=== PATIENT | female | born 1940 | race Two or more races ===

== ENCOUNTER 2018-08-19 19:08 | Inpatient (IN) | payer OTHER, MEDICAID ==
[~2018-08-19] VITALS: Ht 157.5 cm; Wt 74.8 kg
[2018-08-19] MEDS ORDERED: SODIUM CHLORIDE 0.9% 500 ML IV ONE (21:17)
[2018-08-19 21:52] LABS: BASOPHILS % 0.3 % (0.0-2.0); EOSINOPHILS % 0.4 % (0.0-5.0); HEMOGLOBIN. 13.8 g/dL (12.0-16.0); LYMPHOCYTES % 13.1 % (20.0-50.0); MEAN CORPUSCULAR VOLUME 91.4 fL (81.0-99.0); MEAN PLATELET VOLUME 8.7 fl (7.4-10.4); MONOCYTES % 10.5 % (2.0-8.0); NEUTROPHILS % 75.7 % (40.0-76.0); PLATELET 272 x1000/uL (130-400); RED CELL DISTRIBUTION WIDTH 14.5 % (11.6-14.6)
[2018-08-19 21:57] LABS: CHLORIDE 104 mEq/L (98-107)
[2018-08-19 22:05] LABS: CREATINE KINASE 42 IU/L (26-192)
[2018-08-19 22:08] LABS: CREATINE KINASE MB FRACTION < 1.0 ng/mL (0.5-3.6)
[2018-08-19] MEDS ORDERED: LEVOFLOXACIN 750MG PREMIX 150 ML IV ONE (23:15)
[2018-08-20 09:45] VITALS: BP 135/57
[2018-08-20] MEDS ORDERED: MORPHINE SULFATE 4 MG/ML CPJ (NOT FOR IM USE) IV PRN (11:45)
[2018-08-20] MEDS ORDERED: AZITHROMYCIN 500 MG in DEXT 5% WATER 250 ML IV SCH (11:45)
[2018-08-20] MEDS ORDERED: IPRATROPIUM/ALBUTEROL 0.5-3(2.5)MG/3ML NEB INH PRN (11:45)
[2018-08-20] MEDS ORDERED: ONDANSETRON HCL 4MG/2ML INJ IV PRN (11:45)
[2018-08-20] MEDS ORDERED: HYDROCODONE/ACETAMINOPHEN 5/325MG TABLET PO PRN (11:45)
[2018-08-20] MEDS ORDERED: CEFTRIAXONE 1 G PREMIX 50 ML IV SCH (11:45)
[2018-08-20] MEDS ORDERED: ACETAMINOPHEN 325MG TABLET PO PRN (11:45)
[2018-08-20] MEDS ORDERED: CLONIDINE 0.1MG TABLET PO PRN (11:45)
[2018-08-20 12:00] VITALS: BP 139/49
[2018-08-20] MEDS ORDERED: ASPI-1159 MT (12:16)
[2018-08-20] MEDS ORDERED: SIMV10TA2 MT (12:16)
[2018-08-20] MEDS ORDERED: DULO30CA2 MT (12:16)
[2018-08-20] MEDS ORDERED: DONE10TA11 MT (12:16)
[2018-08-20] MEDS ORDERED: FAMO-134 PO (12:16)
[2018-08-20] MEDS ORDERED: AMLO5TAB4 MT (12:16)
[2018-08-20] MEDS ORDERED: SENN-22 PO (12:16)
[2018-08-20] MEDS ORDERED: ASPRIN (12:16)
[2018-08-20] MEDS ORDERED: CHOL100044 MT (12:16)
[2018-08-20] MEDS ORDERED: MULT-1146 MT (12:16)
[2018-08-20] MEDS ORDERED: DOCU-138 PO (12:16)
[2018-08-20 12:38] LABS: BASOPHILS % 0.5 % (0.0-2.0); EOSINOPHILS % 0.4 % (0.0-5.0); HEMATOCRIT. 38.2 % (36.0-48.0); HEMOGLOBIN. 12.6 g/dL (12.0-16.0); LYMPHOCYTES % 12.1 % (20.0-50.0); MEAN CORPUSCULAR HEMOGLOBIN 29.8 pg (28.0-32.0); MEAN CORPUSCULAR VOLUME 90.8 fL (81.0-99.0); MEAN PLATELET VOLUME 8.1 fl (7.4-10.4); MONOCYTES % 9.9 % (2.0-8.0); NEUTROPHILS % 77.1 % (40.0-76.0); PLATELET 242 x1000/uL (130-400); RED BLOOD CELL COUNT 4.21 mill/uL (4.2-5.4); RED CELL DISTRIBUTION WIDTH 14.1 % (11.6-14.6)
[2018-08-20 12:54] LABS: CHLORIDE 107 mEq/L (98-107)
[2018-08-20] MEDS: CEFTRIAXONE 1 G PREMIX 50 ML IV SCH (13:46)
[2018-08-20] MEDS: DONEPEZIL HCL 10MG TABLET PO SCH (13:47)
[2018-08-20] MEDS: DULOXETINE HCL 20MG DR CAPSULE PO SCH (13:47)
[2018-08-20] MEDS: AZITHROMYCIN 500 MG in DEXT 5% WATER 250 ML IV SCH (13:47)
[2018-08-20] MEDS: FAMOTIDINE 20MG TABLET PO SCH (13:47)
[2018-08-20] MEDS: AMLODIPINE 5MG TABLET PO SCH (13:59)
[2018-08-20 15:57] LABS: CREATINE KINASE 48 IU/L (26-192)
[2018-08-20 16:00] VITALS: BP 148/49
[2018-08-20 20:01] VITALS: BP 128/53
[2018-08-20] MEDS ORDERED: FAMOTIDINE 20MG TABLET PO SCH (21:00)
[2018-08-20] MEDS: ATORVASTATIN CALCIUM 10MG TABLET PO SCH (23:04)
[2018-08-20 23:10] LABS: CREATINE KINASE 46 IU/L (26-192)
[2018-08-21] VITALS (7 sets, daily range): BP systolic 106–146; BP diastolic 46–80
[2018-08-21 07:08] LABS: BASOPHILS % 0.5 % (0.0-2.0); EOSINOPHILS % 2.2 % (0.0-5.0); HEMATOCRIT. 35.9 % (36.0-48.0); LYMPHOCYTES % 13.2 % (20.0-50.0); MEAN CORPUSCULAR HEMOGLOBIN 30.8 pg (28.0-32.0); MEAN PLATELET VOLUME 8.8 fl (7.4-10.4); MONOCYTES % 10.3 % (2.0-8.0); NEUTROPHILS % 73.8 % (40.0-76.0); PLATELET 255 x1000/uL (130-400)
[2018-08-21 07:45] LABS: CHLORIDE 106 mEq/L (98-107)
[2018-08-21 07:54] LABS: HDL CHOLESTEROL 50 mg/dL (40-59); T4 FREE 1.51 ng/dL (0.76-1.46)
[2018-08-21 07:55] LABS: LDL CHOLESTEROL 78 mg/dL (5-100)
[2018-08-21] MEDS: AZITHROMYCIN 500 MG in DEXT 5% WATER 250 ML IV SCH (08:30)
[2018-08-21] MEDS: DULOXETINE HCL 20MG DR CAPSULE PO SCH (08:31)
[2018-08-21] MEDS: AMLODIPINE 5MG TABLET PO SCH (08:32)
[2018-08-21] MEDS: FAMOTIDINE 20MG TABLET PO SCH (08:33)
[2018-08-21] MEDS: DONEPEZIL HCL 10MG TABLET PO SCH (08:33)
[2018-08-21] MEDS: CEFTRIAXONE 1 G PREMIX 50 ML IV SCH (12:14)
[2018-08-21] MEDS ORDERED: IOHEXOL-350 100 ML BOTTLE ONE (13:12)
[2018-08-21] MEDS: ATORVASTATIN CALCIUM 10MG TABLET PO SCH ×2 (20:28→20:31)
== END 2018-08-21 22:45 | DRG 70 ==
LOC: ER 19:08 → 7WST 23:49 → ENRESERV 08-20 07:16
PROVIDERS: ADMIT Internal Medicine; ATTEND Internal Medicine
DX: G93.41 Metabolic encephalopathy (principal); J18.9 Pneumonia, unspecified organism; G30.9 Alzheimer's disease, unspecified; K29.70 Gastritis, unspecified, without bleeding; I10 Essential (primary) hypertension; F02.80 Dementia in other diseases classified elsewhere, unspecified severity, without behavioral disturbance, psychotic disturbance, mood disturbance, and anxiety; R09.02 Hypoxemia; R29.6 Repeated falls; K21.9 Gastro-esophageal reflux disease without esophagitis; Z86.73 Personal history of transient ischemic attack (TIA), and cerebral infarction without residual deficits; Z88.2 Allergy status to sulfonamides
CPT/HCPCS: 36415; 71045; 71275; 80048; 80061; 82550; 82553; 83605; 83880; 84439; 84443; 84484; 85379; 93005; 96365; 99285; J0456; J0696; J1956; J7040; J7050; J7060; Q9967; A4315

== ENCOUNTER 2018-09-04 20:27 | Inpatient (IN) | payer OTHER ==
[~2018-09-04] VITALS: Ht 162.6 cm; Wt 63.6 kg
[~2018-09-04 20:27] MED LIST: AMLO5TAB4 MT; ASPI-1159 MT; ASPRIN; CHOL100044 MT; DOCU-138 PO; DONE10TA11 MT; DULO30CA2 MT; FAMO-134 PO; MULT-1146 MT; SENN-22 PO; SIMV10TA2 MT
[2018-09-04] MEDS ORDERED: SODIUM CHLORIDE 0.9% 1,000 ML IV ONE (20:46)
[2018-09-04] MEDS ORDERED: ACETAMINOPHEN 650MG SUPP PR STA (20:46)
[2018-09-04] MEDS ORDERED: SODIUM CHLORIDE 0.9% 1000ML BAG (SEPSIS BOLUS) IV ONE (21:00)
[2018-09-04] MEDS ORDERED: VANCOMYCIN 1 G PREMIX 200 ML IV ONE (21:00)
[2018-09-04] MEDS ORDERED: PIPERACILLIN/TAZ 3.375G PREMIX 50 ML IV ONE (21:00)
[2018-09-04 21:11] LABS: BASOPHILS % 0.3 % (0.0-2.0); EOSINOPHILS % 0.3 % (0.0-5.0); HEMATOCRIT. 42.1 % (36.0-48.0); HEMOGLOBIN. 13.6 g/dL (12.0-16.0); LYMPHOCYTES % 11.1 % (20.0-50.0); MEAN CORPUSCULAR HEMOGLOBIN 29.1 pg (28.0-32.0); MEAN CORPUSCULAR VOLUME 90.3 fL (81.0-99.0); MEAN PLATELET VOLUME 8.4 fl (7.4-10.4); MONOCYTES % 11.8 % (2.0-8.0); NEUTROPHILS % 76.5 % (40.0-76.0); PLATELET 431 x1000/uL (130-400); RED BLOOD CELL COUNT 4.66 mill/uL (4.2-5.4); RED CELL DISTRIBUTION WIDTH 13.5 % (11.6-14.6)
[2018-09-04 21:17] LABS: CHLORIDE 103 mEq/L (98-107)
[2018-09-04 21:18] LABS: INR 1.1; PROTHROMBIN TIME 11.1 sec (9.6-11.0)
[2018-09-04] MEDS ORDERED: ACETAMINOPHEN 325MG TABLET PO ONE (21:45)
[2018-09-04 22:09] LABS: CLARITY URINE CLEAR (CLEAR); COLOR URINE DARK YELLOW (YELLOW); KETONES URINE TRACE (NEGATIVE); LEUKOCYTE ESTERASE URINE NEGATIVE (NEGATIVE); NITRITE URINE NEGATIVE (NEGATIVE); OCCULT BLOOD URINE NEGATIVE (NEGATIVE); PROTEIN URINE TRACE (NEGATIVE); SPECIFIC GRAVITY URINE 1.024 (1.005-1.030); UROBILINOGEN URINE 0.2 E.U./dL (0.2-1.0)
[2018-09-04] MEDS ORDERED: LORAZEPAM 2MG/ML CPJ IV ONE (22:30)
[2018-09-04] MEDS ORDERED: ACETAMINOPHEN 650MG SUPP PR ONE (23:00)
[2018-09-04] MEDS ORDERED: METRONIDAZOLE 500 MG PREMIX 100 ML IV ONE (23:30)
[2018-09-05 01:00] VITALS: BP 121/40
[2018-09-05 02:28] VITALS: BP 121/40
[2018-09-05] MEDS ORDERED: ACETAMINOPHEN 650MG/20.3ML UDC PO PRN (03:30)
[2018-09-05] MEDS ORDERED: HYDROCODONE/ACETAMINOPHEN 5/325MG TABLET PO PRN (03:30)
[2018-09-05] MEDS ORDERED: ATOR10TA PO (03:47)
[2018-09-05 04:00] VITALS: BP 130/76
[2018-09-05] MEDS ORDERED: LEVOFLOXACIN 500MG TABLET PO SCH ×2 (04:15→11:00)
[2018-09-05 06:31] LABS: BASOPHILS % 0.3 % (0.0-2.0); HEMOGLOBIN. 11.3 g/dL (12.0-16.0); LYMPHOCYTES % 10.6 % (20.0-50.0); MEAN CORPUSCULAR HEMOGLOBIN 28.8 pg (28.0-32.0); MEAN CORPUSCULAR VOLUME 88.9 fL (81.0-99.0); MEAN PLATELET VOLUME 8.4 fl (7.4-10.4); MONOCYTES % 10.6 % (2.0-8.0); NEUTROPHILS % 77.5 % (40.0-76.0); PLATELET 346 x1000/uL (130-400); RED BLOOD CELL COUNT 3.93 mill/uL (4.2-5.4); RED CELL DISTRIBUTION WIDTH 13.9 % (11.6-14.6)
[2018-09-05] MEDS: METRONIDAZOLE 500MG TABLET PO SCH ×3 (06:34→21:28)
[2018-09-05 07:17] LABS: CHLORIDE 112 mEq/L (98-107)
[2018-09-05 07:29] LABS: LDL CHOLESTEROL 53 mg/dL (5-100)
[2018-09-05 07:31] LABS: T4 FREE 1.46 ng/dL (0.76-1.46)
[2018-09-05 07:33] LABS: HDL CHOLESTEROL 40 mg/dL (40-59)
[2018-09-05 08:00] VITALS: BP_SYST 106; BP_SYST 90; BP_DIAS 42; BP_DIAS 43
[2018-09-05] MEDS: ENOXAPARIN 40MG/0.4ML SYR SUBCUT SCH (08:54)
[2018-09-05 11:44] LABS: BG BASE EXCESS -1.4 mmol/L (-2.0-2.0); BG DEOXYHEMOGLOBIN 8.9 % (0.0-5.0); BG FRACTION INSPIRED OXYGEN 21; BG HCO3 ACT 23.5 mmol/L (22.0-26.0); BG METHEMOGLOBIN 0.2 % (0.0-1.5); BG OXYGEN SATURATION 91.1 % (92.0-98.5); BG OXYHEMOGLOBIN 90.9 % (94.0-97.0); BG PCO2 40.3 mmHg (35.0-45.0); BG PH 7.384 (7.350-7.450); BG PO2 57.7 mmHg (75.0-100.0); BG SAMPLE SITE RIGHT RADIAL; BG TOTAL HEMOGLOBIN 12.2 g/dL (12.0-18.0); BG VENT MODE ROOM AIR
[2018-09-05 12:00] VITALS: BP 106/42
[2018-09-05] MEDS: DEXT 5%/0.45% NACL 1000ML 1,000 ML IV SCH (13:58)
[2018-09-05 20:00] VITALS: BP 108/46
[2018-09-05] MEDS: BUDESONIDE 0.5MG/2ML NEB HHN SCH (20:49)
[2018-09-05] MEDS: IPRATROPIUM/ALBUTEROL 0.5-3(2.5)MG/3ML NEB HHN SCH (20:53)
[2018-09-05] MEDS: NYSTATIN POWDER 15GM TOP SCH (21:28)
[2018-09-06] VITALS: BP 126/49
[2018-09-06] MEDS: IPRATROPIUM/ALBUTEROL 0.5-3(2.5)MG/3ML NEB HHN SCH ×6 (00:20→21:22)
[2018-09-06] MEDS: DEXT 5%/0.45% NACL 1000ML 1,000 ML IV SCH ×2 (03:01→13:23)
[2018-09-06 04:00] VITALS: BP 105/42
[2018-09-06] MEDS ORDERED: LEVOFLOXACIN 250MG PREMIX 50 ML IV SCH (06:00)
[2018-09-06] MEDS: METRONIDAZOLE 500MG TABLET PO SCH ×3 (06:02→21:37)
[2018-09-06 06:27] LABS: BASOPHILS % 0.5 % (0.0-2.0); EOSINOPHILS % 4.1 % (0.0-5.0); HEMATOCRIT. 35.1 % (36.0-48.0); HEMOGLOBIN. 11.4 g/dL (12.0-16.0); LYMPHOCYTES % 19.3 % (20.0-50.0); MEAN CORPUSCULAR HEMOGLOBIN 29.1 pg (28.0-32.0); MEAN CORPUSCULAR VOLUME 89.4 fL (81.0-99.0); MEAN PLATELET VOLUME 8.2 fl (7.4-10.4); MONOCYTES % 8.2 % (2.0-8.0); NEUTROPHILS % 67.9 % (40.0-76.0); PLATELET 322 x1000/uL (130-400); RED BLOOD CELL COUNT 3.92 mill/uL (4.2-5.4); RED CELL DISTRIBUTION WIDTH 13.9 % (11.6-14.6)
[2018-09-06 08:00] VITALS: BP 99/41
[2018-09-06] MEDS: BUDESONIDE 0.5MG/2ML NEB HHN SCH ×2 (08:08→21:22)
[2018-09-06] MEDS: NYSTATIN POWDER 15GM TOP SCH ×2 (08:51→17:00)
[2018-09-06] MEDS: ENOXAPARIN 40MG/0.4ML SYR SUBCUT SCH (08:51)
[2018-09-06] MEDS ORDERED: LEVOFLOXACIN 250MG TABLET PO SCH (11:00)
[2018-09-06 12:00] VITALS: BP 118/50
[2018-09-06] MEDS: VANCOMYCIN HCL 1000 MG/20 ML ORAL PO SCH (19:51)
[2018-09-06 20:00] VITALS: BP 152/59
[2018-09-07] VITALS (8 sets, daily range): BP systolic 106–145; BP diastolic 48–88
[2018-09-07] MEDS: VANCOMYCIN HCL 1000 MG/20 ML ORAL PO SCH ×4 (01:09→17:09)
[2018-09-07] MEDS: IPRATROPIUM/ALBUTEROL 0.5-3(2.5)MG/3ML NEB HHN SCH ×7 (01:30→20:26)
[2018-09-07] MEDS: METRONIDAZOLE 500MG TABLET PO SCH ×3 (06:18→23:00)
[2018-09-07] MEDS: DEXT 5%/0.45% NACL 1000ML 1,000 ML IV SCH ×2 (06:20→12:32)
[2018-09-07 07:26] LABS: BASOPHILS % 0.6 % (0.0-2.0); EOSINOPHILS % 0.9 % (0.0-5.0); HEMATOCRIT. 36.3 % (36.0-48.0); LYMPHOCYTES % 15.8 % (20.0-50.0); MEAN CORPUSCULAR HEMOGLOBIN 29.4 pg (28.0-32.0); MEAN CORPUSCULAR VOLUME 89.1 fL (81.0-99.0); MEAN PLATELET VOLUME 8.7 fl (7.4-10.4); MONOCYTES % 7.3 % (2.0-8.0); NEUTROPHILS % 75.4 % (40.0-76.0); PLATELET 347 x1000/uL (130-400); RED BLOOD CELL COUNT 4.07 mill/uL (4.2-5.4); RED CELL DISTRIBUTION WIDTH 13.4 % (11.6-14.6)
[2018-09-07 07:39] LABS: CHLORIDE 107 mEq/L (98-107)
[2018-09-07] MEDS: BUDESONIDE 0.5MG/2ML NEB HHN SCH ×3 (08:45→20:26)
[2018-09-07] MEDS: NYSTATIN POWDER 15GM TOP SCH ×2 (10:57→17:09)
[2018-09-07] MEDS: ENOXAPARIN 40MG/0.4ML SYR SUBCUT SCH (10:57)
[2018-09-07] MEDS ORDERED: ATROPINE SULFATE 1MG/10ML SYR IV PRN ×2 (14:30→15:45)
[2018-09-07] MEDS ORDERED: POTASSIUM CHLORIDE INJ 40 MEQ in DEXT 5% WATER 250 ML IV NR (16:00)
[2018-09-07] MEDS: AMLODIPINE 2.5MG TABLET PO SCH (21:24)
[2018-09-08] VITALS (12 sets, daily range): BP systolic 117–165; BP diastolic 57–87
[2018-09-08] MEDS: IPRATROPIUM/ALBUTEROL 0.5-3(2.5)MG/3ML NEB HHN SCH ×4 (00:20→20:48)
[2018-09-08 05:51] LABS: CHLORIDE 107 mEq/L (98-107)
[2018-09-08] MEDS: DEXT 5%/0.45% NACL 1000ML 1,000 ML IV SCH ×2 (06:01→17:30)
[2018-09-08 06:28] LABS: BASOPHILS % 0.5 % (0.0-2.0); EOSINOPHILS % 0.1 % (0.0-5.0); HEMATOCRIT. 37.9 % (36.0-48.0); HEMOGLOBIN. 12.8 g/dL (12.0-16.0); LYMPHOCYTES % 18.2 % (20.0-50.0); MEAN CORPUSCULAR HEMOGLOBIN 29.8 pg (28.0-32.0); MEAN CORPUSCULAR VOLUME 88.4 fL (81.0-99.0); MEAN PLATELET VOLUME 8.4 fl (7.4-10.4); MONOCYTES % 7.3 % (2.0-8.0); NEUTROPHILS % 73.9 % (40.0-76.0); PLATELET 339 x1000/uL (130-400); RED BLOOD CELL COUNT 4.29 mill/uL (4.2-5.4); RED CELL DISTRIBUTION WIDTH 13.7 % (11.6-14.6)
[2018-09-08] MEDS: METRONIDAZOLE 500MG TABLET PO SCH ×3 (06:39→21:55)
[2018-09-08] MEDS: VANCOMYCIN HCL 1000 MG/20 ML ORAL PO SCH ×4 (06:40→17:29)
[2018-09-08] MEDS: AMLODIPINE 2.5MG TABLET PO SCH ×2 (09:00→21:55)
[2018-09-08] MEDS: ENOXAPARIN 40MG/0.4ML SYR SUBCUT SCH (09:12)
[2018-09-08] MEDS: NYSTATIN POWDER 15GM TOP SCH ×2 (09:16→17:17)
[2018-09-08] MEDS ORDERED: POTASSIUM CHLORIDE 20MEQ TABLET SR PO NR (11:30)
[2018-09-08] MEDS ORDERED: POTASSIUM CHLORIDE INJ 40 MEQ in DEXT 5% WATER 250 ML IV NR (12:00)
[2018-09-09] VITALS (12 sets, daily range): BP systolic 107–153; BP diastolic 59–87
[2018-09-09] MEDS: IPRATROPIUM/ALBUTEROL 0.5-3(2.5)MG/3ML NEB HHN SCH ×3 (00:27→16:00)
[2018-09-09 05:48] LABS: BASOPHILS % 0.8 % (0.0-2.0); EOSINOPHILS % 2.5 % (0.0-5.0); HEMATOCRIT. 37.5 % (36.0-48.0); HEMOGLOBIN. 12.3 g/dL (12.0-16.0); LYMPHOCYTES % 26.5 % (20.0-50.0); MEAN CORPUSCULAR HEMOGLOBIN 28.9 pg (28.0-32.0); MEAN CORPUSCULAR VOLUME 88.2 fL (81.0-99.0); NEUTROPHILS % 61.2 % (40.0-76.0); PLATELET 363 x1000/uL (130-400); RED BLOOD CELL COUNT 4.26 mill/uL (4.2-5.4); RED CELL DISTRIBUTION WIDTH 13.6 % (11.6-14.6)
[2018-09-09] MEDS: VANCOMYCIN HCL 1000 MG/20 ML ORAL PO SCH ×4 (06:47→17:20)
[2018-09-09] MEDS: METRONIDAZOLE 500MG TABLET PO SCH ×3 (06:47→22:37)
[2018-09-09 08:42] LABS: CHLORIDE 108 mEq/L (98-107)
[2018-09-09 09:03] LABS: CREATINE KINASE 67 IU/L (26-192)
[2018-09-09 09:06] LABS: CREATINE KINASE MB FRACTION 1.1 ng/mL (0.5-3.6)
[2018-09-09] MEDS: ENOXAPARIN 40MG/0.4ML SYR SUBCUT SCH (09:26)
[2018-09-09] MEDS: AMLODIPINE 2.5MG TABLET PO SCH ×2 (09:26→22:36)
[2018-09-09] MEDS: DEXT 5%/0.45% NACL 1000ML 1,000 ML IV SCH ×2 (09:28→22:37)
[2018-09-09] MEDS: NYSTATIN POWDER 15GM TOP SCH ×2 (09:30→17:23)
[2018-09-10] VITALS (11 sets, daily range): BP systolic 110–138; BP diastolic 49–81
[2018-09-10] MEDS: VANCOMYCIN HCL 1000 MG/20 ML ORAL PO SCH ×4 (00:54→18:00)
[2018-09-10] MEDS: IPRATROPIUM/ALBUTEROL 0.5-3(2.5)MG/3ML NEB HHN SCH ×3 (02:18→16:07)
[2018-09-10] MEDS: METRONIDAZOLE 500MG TABLET PO SCH ×2 (06:11→13:13)
[2018-09-10] MEDS: ENOXAPARIN 40MG/0.4ML SYR SUBCUT SCH (09:00)
[2018-09-10] MEDS: AMLODIPINE 2.5MG TABLET PO SCH (09:00)
[2018-09-10] MEDS: NYSTATIN POWDER 15GM TOP SCH ×2 (09:06→17:00)
== END 2018-09-10 18:56 | DRG 871 ==
LOC: ER 20:27 → 5WST 23:27 → EDBEDREQSVC 23:29 → EDBEDREQ 23:29 → EDBEDREQTM 23:29 → ENRESERV 23:38 → 3WST 09-07 15:35
PROVIDERS: ADMIT Internal Medicine; ATTEND Internal Medicine
DX: A41.9 Sepsis, unspecified organism (principal); J18.9 Pneumonia, unspecified organism; N39.0 Urinary tract infection, site not specified; J44.0 Chronic obstructive pulmonary disease with (acute) lower respiratory infection; A04.72 Enterocolitis due to Clostridium difficile, not specified as recurrent; E87.2 Acidosis; J44.1 Chronic obstructive pulmonary disease with (acute) exacerbation; E86.0 Dehydration; F03.90 Unspecified dementia, unspecified severity, without behavioral disturbance, psychotic disturbance, mood disturbance, and anxiety; R62.7 Adult failure to thrive; E78.5 Hyperlipidemia, unspecified; E87.6 Hypokalemia; I10 Essential (primary) hypertension; I44.30 Unspecified atrioventricular block; R06.03 Acute respiratory distress; R73.9 Hyperglycemia, unspecified; Z68.24 Body mass index [BMI] 24.0-24.9, adult; Z86.73 Personal history of transient ischemic attack (TIA), and cerebral infarction without residual deficits; Z88.2 Allergy status to sulfonamides; Z88.5 Allergy status to narcotic agent; I70.0 Atherosclerosis of aorta
CPT/HCPCS: 36415; 36600; 71045; 74176; 80048; 80061; 82375; 82550; 82553; 82805; 83036; 83605; 83735; 83880; 84145; 84439; 84443; 84484; 87015; 87045; 87427; 87449; 87493; 87804; 93005; 93306; 96365; 96366; 96368; 96375; 97162; 97165; 97530; 99291; A6261; J1650; J1956; J2060; J2543; J3370; J3480; J3490; J7030; J7040; J7060; J7620; J7626